=== PATIENT | male | born 1985 ===

== ENCOUNTER 2019-03-18 15:21 | Emergency (ER) | payer SELFPAY ==
[2019-03-18] MEDS ORDERED: Morphine 4 MG/ML VIAL ONE (16:14)
[2019-03-18] MEDS ORDERED: Ketorolac Tromethamine 30 MG/ML VIAL ONE (16:14)
[2019-03-18] MEDS ORDERED: Dexamethasone 4 mg/ml Vial ONE (16:14)
--- NOTE | 2019-03-18 17:50 | CT ---
CT LUMBAR SPINE: 03/18/19 Axial tomograms obtained with multiplanar reconstruction. INDICATIONS: Injury. FINDINGS: The lumbar vertebrae maintain normal height and alignment. Disc spaces are maintained. There is a posterior spondylolysis at L5-S1 bilaterally which appears chronic. There is a mild broad based disc bulge at L5-S1 which does abut the traversing S1 nerve roots. No oth er significant disc bulge or disc protrusion at the other visualized lumbar levels. There is no centr al canal or foraminal stenosis. IMPRESSION: Posterior spondylolysis at L5-S1 without spondylolisthesis. Mild broad based bulge at L5-S1. POS: [facility]
== END 2019-03-18 18:25 | disposition home or self-care (01) ==
LOC: ERS 15:21
DX: M51.26 Other intervertebral disc displacement, lumbar region (principal)
CPT/HCPCS: 72131; 96374; 96375; J1100; J1885; J2270